=== PATIENT | female | born 1965 ===

== ENCOUNTER 2017-10-13 21:30 | Emergency (ER) | payer MEDICAID ==
[2017-10-13 21:31] VITALS: BMI 29.0
[2017-10-13 21:51] VITALS: RESP 16; O2SAT 98
[2017-10-14] MEDS ORDERED: Sodium Chloride 0.9% 1,000 ML IV ONE (00:11)
--- NOTE | 2017-10-14 00:21 | C.PDOC ---
History Of Present Illness 51 year old female presents to the ED for evaluation of right temporal headache for the past 2 days. Patient reports that headache was intermittent initially but has been constant today. She has been taking advil without significant relief. She describes headache as dull and pounding. Patient states that she used to get frequent headaches but has not had one in a long time. Prior headaches typically resolved with OTC medications. She denies fevers or chills. No visual disturbances, nausea, vomiting, or weakness. Time Seen by Provider: 10/13/17 23:59 Chief Complaint (Nursing): Headache History Per: Patient History/Exam Limitations: no limitations Onset/Duration Of Symptoms: Days, Worse Since Current Symptoms Are (Timing): Still Present Quality: Dull, Other (pounding) Preceeding Symptoms: denies: Visual Disturbances Associated Symptoms: denies: Blurred Vision, Nausea, Vomiting, Extremity Weakness Recent travel outside of the [place]: No Past Medical History Reviewed: Historical Data, Nursing Documentation, Vital Signs Vital Signs: Last Vital Signs Temp 98.4 F 10/13/17 21:43 Pulse 65 10/13/17 21:43 Resp 16 10/13/17 21:43 BP 177/97 H 10/13/17 21:43 Pulse Ox 98 10/14/17 00:23 - Medical History PMH: Gastritis, HTN Denies: Chronic Kidney Disease Surgical History: Endoscopy (a year ago) - [facility] Procedures ENDOSCOPIC CONTROL OF GASTRIC OR DUODENAL BLEEDING (01/13/14) ESOPHAGOGASTRODUODENOSCOPY [EGD] W/CLOSED BIOPSY (01/13/14) Family History: States: Unknown Family Hx - Social History Hx Tobacco Use: No Hx Alcohol Use: No Hx Substance Use: No - Immunization History Hx Tetanus Toxoid Vaccination: No Hx Influenza Vaccination: No Hx Pneumococcal Vaccination: No Review Of Systems Constitutional: Negative for: Fever, Chills Eyes: Negative for: Vision Change ENT: Negative for: Ear Pain, Throat Pain Cardiovascular: Negative for: Chest Pain Respiratory: Negative for: Cough, Shortness of Breath Gastrointestinal: Negative for: Nausea, Vomiting, Abdominal Pain, Diarrhea Genitourinary: Negative for: Dysuria Skin: Negative for: Rash Neurological: Positive for: Headache. Negative for: Weakness, Numbness Physical Exam - Physical Exam Appears: Well, Non-toxic, Other (Patient appears uncomfortable ) Skin: Normal Color, Warm, Dry Head: Atraumatic, Normacephalic Eye(s): bilateral: Normal Inspection, PERRL, EOMI Oral Mucosa: Moist Throat: Normal Neck: Normal ROM, Supple Cardiovascular: Rhythm Regular (Rate regular ) Respiratory: Normal Breath Sounds, No Rales, No Rhonchi, No Wheezing Gastrointestinal/Abdominal: Soft, No Tenderness Back: Normal Inspection Extremity: Normal ROM, No Deformity Neurological/Psych: Oriented x3, Normal Speech, Normal Cranial Nerves, Normal Motor, Normal Sensation Gait: Steady ED Course And Treatment O2 Sat by Pulse Oximetry: 98 Pulse Ox Interpretation: Normal Reevaluation Time: 23:55 Reassessment Condition: Improved (after IV fluids, Decadron and Reglan.) Disposition Counseled Patient/Family Regarding: Diagnosis, Need For Followup - Disposition Referrals: Deonna Cardoso [Staff Provider] - Disposition: HOME/ ROUTINE Disposition Time: 23:55 Condition: IMPROVED Instructions: Headache, Adult Forms: [facility] ([employer]) Print Language: ROMANIAN - Clinical Impression Clinical Impression: Headache - Scribe Statement The provider has reviewed the documentation as recorded by the Araceli Miles Provider Attestation: All medical record entries made by the Eliuibe were at my direction and personally dictated by me. I have reviewed the chart and agree that the record accurately reflects my personal performance of the history, physical exam, medical decision making, and the department course for this patient. I have also personally directed, reviewed, and agree with the discharge instructions and disposition.
[2017-10-14] MEDS ORDERED: Dexamethasone 4 mg/1 ml ONE (00:22)
[2017-10-14 01:15] VITALS: BP 135/69; PULSE 78; TEMP 98
== END 2017-10-14 01:15 | disposition home or self-care (01) ==
LOC: C.ER 21:30
DX: R51 Headache (principal)
CPT/HCPCS: 96374; 96375; 99284; J1100; J2765; J7040

== ENCOUNTER 2018-05-09 08:58 | Emergency (ER) | payer MEDICAID, OTHER ==
[2018-05-09 08:58] VITALS: BMI 29.0
[2018-05-09 09:28] VITALS: RESP 16; TEMP 97.3; O2SAT 98
[2018-05-09 09:34] LABS: SQUAMOUS EPITHIAL 1 /hpf (0-5); URINE BILIRUBIN NEGATIVE (NEGATIVE); URINE BLOOD NEGATIVE (NEGATIVE); URINE CLARITY Clear (Clear); URINE COLOR Yellow (YELLOW); URINE GLUCOSE (UA) NORMAL (Normal); URINE LEUKOCYTE ESTERASE NEG Leu/uL (Negative); URINE PROTEIN NEGATIVE (NEGATIVE); URINE UROBILINOGEN NORMAL mg/dL (0.2-1.0)
[2018-05-09 10:33] VITALS: BP 159/84; PULSE 79
--- NOTE | 2018-05-09 10:52 | C.PDOC ---
History Of Present Illness 53 year old female presents to the ER with a complaint of lower back pain for the past 5-6 days that occasionally radiates to the front of the abdomen. Denies falls, injuries, nausea, vomiting, diarrhea, dysuria, hematuria, or fever. Time Seen by Provider: 05/09/18 09:10 Chief Complaint (Nursing): Back Pain History Per: Patient History/Exam Limitations: no limitations Onset/Duration Of Symptoms: Days Current Symptoms Are (Timing): Still Present Quality Of Discomfort: Unable To Describe Previous Symptoms: None Associated Symptoms: None Exacerbating Factor(s): Nothing Recent travel outside of the [place]: No Past Medical History Reviewed: Historical Data, Nursing Documentation, Vital Signs Vital Signs: Last Vital Signs Temp 97.3 F L 05/09/18 09:12 Pulse 79 05/09/18 10:32 Resp 16 05/09/18 10:32 BP 159/84 H 05/09/18 10:32 Pulse Ox 98 05/09/18 14:06 - Medical History PMH: Gastritis, HTN Denies: Chronic Kidney Disease Surgical History: Endoscopy (a year ago) - [facility] Procedures ENDOSCOPIC CONTROL OF GASTRIC OR DUODENAL BLEEDING (01/13/14) ESOPHAGOGASTRODUODENOSCOPY [EGD] W/CLOSED BIOPSY (01/13/14) Family History: States: Unknown Family Hx - Social History Hx Tobacco Use: No Hx Alcohol Use: No Hx Substance Use: No - Immunization History Hx Tetanus Toxoid Vaccination: No Hx Influenza Vaccination: No Hx Pneumococcal Vaccination: No Review Of Systems Except As Marked, All Systems Reviewed And Found Negative. Gastrointestinal: Positive for: Abdominal Pain (Occasionally radiating from back ) Musculoskeletal: Positive for: Back Pain Physical Exam - Physical Exam Appears: Non-toxic, Other (Moderate pain) Skin: Normal Color, Warm, Dry Head: Atraumatic, Normacephalic Eye(s): bilateral: Normal Inspection Oral Mucosa: Moist Chest: Symmetrical, No Tenderness Cardiovascular: Rhythm Regular Respiratory: Normal Breath Sounds, No Rales, No Rhonchi, No Wheezing Gastrointestinal/Abdominal: Soft, No Tenderness Back: No Vertebral Tenderness, Paraspinal Tenderness (Bilateral lumbar) Extremity: Normal ROM (x4) Neurological/Psych: Oriented x3, Normal Speech, Normal Motor, Normal Sensation Gait: Steady ED Course And Treatment O2 Sat by Pulse Oximetry: 98 (Room air) Pulse Ox Interpretation: Normal Progress Note: Urinalysis ordered, results were negative. Toradol and flexeril administered. Patient reports improvement of pain, will discharge home with Rx and instructions to follow up with PMD. Disposition Counseled Patient/Family Regarding: Diagnosis, Need For Followup, Rx Given - Disposition Referrals: Deonna Cardoso [Staff Provider] - Disposition: HOME/ ROUTINE Disposition Time: 10:50 Condition: STABLE Additional Instructions: FOLLOW UP WITH YOUR DOCTOR IN 1-2 DAYS USE MEDICATIONS NEEDED RETURN TO ER IF SYMPTOMS WORSEN SEGUIMIENTO CON GRIER MDICO EN 1-2 GEORGE USE MEDICAMENTOS SEGN SEA NECESARIO VOLVER A ER SI LOS SNTOMAS EMPEORAN Prescriptions: Cyclobenzaprine [Flexeril] 10 mg PO BID PRN #15 tab PRN Reason: Muscle Spasm Naproxen 375 mg PO BID PRN #20 tablet PRN Reason: pain Instructions: Low Back Pain (DC) Forms: [employer] (Yakut) Print Language: SAUDI ARABIAN - Clinical Impression Clinical Impression: Lumbar sprain - Scribe Statement The provider has reviewed the documentation as recorded by the Scribverena Claros All medical record entries made by the Scribe were at my direction and personally dictated by me. I have reviewed the chart and agree that the record accurately reflects my personal performance of the history, physical exam, medical decision making, and the department course for this patient. I have also personally directed, reviewed, and agree with the discharge instructions and disposition.
== END 2018-05-09 10:56 | disposition home or self-care (01) ==
LOC: C.ER 08:58
DX: S33.5XXA Sprain of ligaments of lumbar spine, initial encounter (principal); X58.XXXA Exposure to other specified factors, initial encounter; I10 Essential (primary) hypertension
CPT/HCPCS: 81001; 96372; 99283; J1885

== ENCOUNTER 2019-01-02 17:33 | Emergency (ER) | payer OTHER ==
[2019-01-02 17:33] VITALS: BMI 29.0
[2019-01-02 19:13] VITALS: BP 150/80; PULSE 81; TEMP 98; O2SAT 98
--- NOTE | 2019-01-02 19:50 | C.PDOC ---
History Of Present Illness Patient presents to the ED with 5 days of lower back pain that radiates to the right hip. Patient states pain is 5/10, throbbing and constant. Pain is worsened with ROM and walking while resting helps to alleviate the pain. She has been taking naprosyn with some relief. Patient denies any injuries. Denies abdominal pain, urinary symptoms, chest pain, SOB, nausea, vomiting, saddle parasthesias or any urinary or bowel incontinence. No other complaints at this time. Time Seen by Provider: 01/02/19 19:37 Chief Complaint (Nursing): Back Pain Past Medical History Reviewed: Historical Data, Nursing Documentation, Vital Signs Vital Signs: Last Vital Signs Temp 98 F 01/02/19 19:11 Pulse 81 01/02/19 19:11 Resp 14 01/02/19 19:11 BP 150/80 01/02/19 19:11 Pulse Ox 98 01/02/19 19:11 Primary Care Provider: Deonna Cardoso - Medical History PMH: Gastritis, HTN Denies: Chronic Kidney Disease Surgical History: Endoscopy (a year ago) - [facility] Procedures ENDOSCOPIC CONTROL OF GASTRIC OR DUODENAL BLEEDING (01/13/14) ESOPHAGOGASTRODUODENOSCOPY [EGD] W/CLOSED BIOPSY (01/13/14) Family History: States: Unknown Family Hx - Social History Hx Tobacco Use: No Hx Alcohol Use: No Hx Substance Use: No - Immunization History Hx Tetanus Toxoid Vaccination: No Hx Influenza Vaccination: No Hx Pneumococcal Vaccination: No Review Of Systems Except As Marked, All Systems Reviewed And Found Negative. Physical Exam - Physical Exam Appears: Well, Non-toxic, No Acute Distress Skin: Normal Color Head: Atraumatic Eye(s): bilateral: Normal Inspection Ear(s): Bilateral: Normal Nose: Normal Oral Mucosa: Moist Neck: Normal, Normal ROM, No Midline Cervical Tenderness Chest: Symmetrical Cardiovascular: Rhythm Regular, Rhythm Irregular Respiratory: Normal Breath Sounds Gastrointestinal/Abdominal: Normal Exam, Soft, No Tenderness, No Distention, No Guarding Back: No CVA Tenderness, No Vertebral Tenderness, Decreased ROM, Muscle Spasm (Noted to lumbar spine.), Paraspinal Tenderness (diffusely to the lumbar spine) Extremity: Normal ROM, No Tenderness, No Calf Tenderness, No Swelling Extremity: Left: Atraumatic, Right: Atraumatic, Bony Point Tenderness (Mild tenderness to the right hip without any shortening or rotation. FROM.), Bilateral: No Pedal Edema, Normal Color And Temperature, Pelvis-Stable Pulses: Left Dorsalis Pedis: Absent, Right Dorsalis Pedis: Absent DTR: Knee (R): 2+, Knee (L): 2+ Neurological/Psych: Oriented x3, Normal Speech Gait: Steady ED Course And Treatment O2 Sat by Pulse Oximetry: 98 - Other Rad XRAY LS SPINE X-Ray: Interpreted by Me (No fracture or subluxation.) Interpretation: No fracture or subluxation. Xray pelvis X-Ray: Interpreted by Me Interpretation: No fracture or subluxation Medical Decision Making Medical Decision Makin 01/02/19 Xrays of the LS spine and pelvis ordered. 30mg IM toradol and PO 10mg flexeril ordered. Warm compresses applied. 204801/02/19 Patient feeling much better s/p toradol and flexeril. Updated on all results. Steady gait. Intact pulses. No neuro deficits on exam. Will treat for muscle spasm, lumbar radiculopathy with NSAID and muscle relaxant. Advised to follow-up closely with PMD and orthopedist. Will return if worsened. Disposition Counseled Patient/Family Regarding: Studies Performed, Diagnosis, Rx Given - Disposition Referrals: Ethan Freire MD [Staff Provider] - Deonna Cardoso [Staff Provider] - Disposition: HOME/ ROUTINE Disposition Time: 20:51 Condition: IMPROVED Additional Instructions: Follow-up with your PMD and orthopedist. Alternate between cold and warm compresses to the back. Return if symptoms worsen or persist. Prescriptions: Cyclobenzaprine [Cyclobenzaprine HCl] 10 mg PO Q8 PRN #12 tab PRN Reason: Muscle Spasm Ibuprofen [Motrin Tab] 800 mg PO TID #20 tab Instructions: Low Back Pain in Adults Forms: Gen Discharge Inst Mauritanian, [employer] (Mauritanian) Print Language: BURUNDIAN - Clinical Impression Clinical Impression: Radicular low back pain, Muscle spasm of back
[2019-01-02 21:02] VITALS: RESP 20
--- NOTE | 2019-01-03 09:05 | RAD ---
Date of service: 01/02/2019 PROCEDURE: Radiographs of the pelvis. HISTORY: pain hip COMPARISON: None. TECHNIQUE: 1 view obtained. FINDINGS: BONES: Pelvic Bones: Unremarkable. Hips: Mild bilateral superolateral hip joint space narrowing JOINTS: Sacroiliac Joints: Minimal right-sided sclerotic arthropathic changes. Pubic Symphysis: Unremarkable. OTHER FINDINGS: None. IMPRESSION: No fracture or lytic lesion. Mild bilateral superolateral hip joint space narrowing compatible with degenerative changes. Mild asymmetrical sclerotic right SI joint arthrosis.
--- NOTE | 2019-01-03 09:06 | RAD ---
Date of service: 01/02/2019 PROCEDURE: Radiographs of the Lumbar Spine. HISTORY: back pain COMPARISON: No prior. TECHNIQUE: 5 views obtained. FINDINGS: BONES: Normal alignment. No listhesis. No fracture. Mild endplate spurring-all lumbar levels. DISC SPACES: Trace posterior L4-5 disc space narrowing. OTHER FINDINGS: Moderate stool retention. IMPRESSION: No fracture or lytic lesions. No subluxation apparent. Minimal posterior L4-5 disc space narrowing. Mild diffuse lumbar spondylosis. Other findings as above.
== END 2019-01-02 21:01 | disposition home or self-care (01) ==
LOC: C.ER 17:33
DX: M54.5 Low back pain (principal); M62.830 Muscle spasm of back; I10 Essential (primary) hypertension
CPT/HCPCS: 72100; 72170; 96372; 99283; J1885